=== PATIENT | female | born 1970 | race African-American/Black ===

== ENCOUNTER 2018-03-03 07:58 | Emergency (ER) | payer OTHER ==
[~2018-03-03] VITALS: Ht 170.2 cm; Wt 124.7 kg
[~2018-03-03 07:58] MED LIST: ADA30 PO; ALBUTEROL1.25 MG/3 NEB; APAP/HYDROCODON1 T13 PO; COL100 PO; IPRATROPIUM BROM3 M2 INH; LAC PO; MOR2I IV; PRI20 PO; PULMICORT0.5 MG/2 M IH; QVAR0.04 MG/Ac IH; SOL40I IV; TYL325 PO; ZES20 PO; ZOFI IV
[2018-03-03 07:59] VITALS: Ht 170.2 cm; Wt 124.7 kg
[2018-03-03 10:43] VITALS: BP 168/89
== END 2018-03-03 10:43 | disposition home or self-care (01) ==
LOC: ED 07:58
DX: J45.901 Unspecified asthma with (acute) exacerbation (principal); I10 Essential (primary) hypertension
CPT/HCPCS: J1885; J7512; J7620; Q0092

== ENCOUNTER 2018-11-16 11:05 | Emergency (ER) | payer OTHER ==
[~2018-11-16] VITALS: Ht 165.1 cm; Wt 127.0 kg
[2018-11-16 11:10] VITALS: Ht 165.1 cm; Wt 127.0 kg
[2018-11-16 11:43] VITALS: BP 165/88
[2018-11-16 12:13] LABS: BASOPHIL % 0.2 % (0-2); PLATELET COUNT 342 x10^3mcL (130-400)
[2018-11-16 12:19] LABS: RED CELL DISTRIBUTION WIDTH 16.2 % (11.5-14.5)
[2018-11-16 12:38] LABS: CALCIUM 7.3 mg/dL (8.5-10.1); CARBON DIOXIDE 26.1 mmol/L (21-32); CHLORIDE SERUM 95 mmol/L (98-107); CREATININE SERUM 0.8 mg/dL (0.6-1.0); GFR1 > 60 mL/min; GLUCOSE SERUM 371 mg/dL (74-106); POTASSIUM SERUM 3.4 mmol/L (3.5-5.1); SODIUM SERUM 137 mmol/L (136-145)
[2018-11-16 12:45] LABS: ALKALINE PHOSPHATASE 253 U/L (46-116); ALT/SGPT 63 U/L (14-59); AST/SGOT 85 U/L (15-37); BILIRUBIN TOTAL 0.5 mg/dL (0.20-1.00); TOTAL PROTEIN, SERUM 7.8 g/dL (6.4-8.2)
[2018-11-16 12:46] LABS: ALBUMIN 3.1 g/dL (3.4-5.0)
== END 2018-11-16 12:10 | disposition left against medical advice (07) ==
LOC: ED 11:05
PROVIDERS: Student in an Organized Health Care Education/Training Program
DX: F10.129 Alcohol abuse with intoxication, unspecified (principal); F41.9 Anxiety disorder, unspecified; J45.909 Unspecified asthma, uncomplicated; I10 Essential (primary) hypertension; F32.9 Major depressive disorder, single episode, unspecified
CPT/HCPCS: 36415; G0480; J1630; Q0092

== ENCOUNTER 2018-11-19 22:21 | Emergency (ER) | payer OTHER ==
[~2018-11-19] VITALS: Ht 167.6 cm; Wt 156.0 kg
[2018-11-19 22:38] VITALS: Ht 167.6 cm; Wt 156.0 kg
[2018-11-19 22:54] LABS: BASOPHIL % 0.3 % (0-2); PLATELET COUNT 306 x10^3mcL (130-400); RED CELL DISTRIBUTION WIDTH 16.7 % (11.5-14.5)
[2018-11-19 23:22] LABS: CARBON DIOXIDE 19.1 mmol/L (21-32); CHLORIDE SERUM 95 mmol/L (98-107); CREATININE SERUM 0.7 mg/dL (0.6-1.0); GFR1 > 60 mL/min; GLUCOSE SERUM 247 mg/dL (74-106); POTASSIUM SERUM 3.2 mmol/L (3.5-5.1); SODIUM SERUM 137 mmol/L (136-145)
[2018-11-19 23:26] LABS: ALBUMIN 3.2 g/dL (3.4-5.0); ALKALINE PHOSPHATASE 251 U/L (46-116); ALT/SGPT 53 U/L (14-59); AST/SGOT 79 U/L (15-37); CHOLESTEROL 193 mg/dL (<200); CHOLESTEROL/HDL RATIO 4.4; HDL CHOLESTEROL 44 mg/dL (40-60); LIPASE 421 IU/L (73-393); TOTAL PROTEIN, SERUM 8.1 g/dL (6.4-8.2); TRIGLYCERIDES 107 mg/dL (<150)
[2018-11-19 23:28] LABS: T3 TOTAL 1.37 ng/mL
[2018-11-19 23:59] LABS: FREE T4 1.41 ng/dL (0.76-1.46); FREE THYROXINE INDEX 4.5 ug/dL (1.4-4.5); T4(THYROXINE) 12.8 ug/dL (4.7-13.3)
[2018-11-20 00:37] VITALS: BP 126/78
[2018-11-20 00:52] LABS: AMPHETAMINE QUAL UR NONE DETECTED (See below)
== END 2018-11-20 01:53 | disposition home or self-care (01) ==
LOC: ED 22:21
PROVIDERS: Specialist
DX: F10.239 Alcohol dependence with withdrawal, unspecified (principal); F41.9 Anxiety disorder, unspecified; D72.829 Elevated white blood cell count, unspecified; J45.909 Unspecified asthma, uncomplicated; I10 Essential (primary) hypertension; F32.9 Major depressive disorder, single episode, unspecified; Y90.7 Blood alcohol level of 200-239 mg/100 ml
CPT/HCPCS: 83880; 84439; G0480; J2060; J7030; Q0092

== ENCOUNTER 2019-08-23 23:54 | Emergency (ER) | payer OTHER ==
[~2019-08-23] VITALS: Ht 167.6 cm; Wt 121.2 kg
[2019-08-24 00:01] VITALS: Ht 167.6 cm; Wt 121.2 kg
[2019-08-24 01:40] LABS: BASOPHIL % 2.8 % (0-2); PLATELET COUNT 388 x10^3mcL (130-400); RED CELL DISTRIBUTION WIDTH 15.5 % (11.5-14.5)
[2019-08-24 01:41] LABS: CALCIUM 8.3 mg/dL (8.5-10.1); CARBON DIOXIDE 27.7 mmol/L (21-32); CHLORIDE SERUM 101 mmol/L (98-107); CREATININE SERUM 0.9 mg/dL (0.6-1.0); GFR1 > 60 mL/min; GLUCOSE SERUM 95 mg/dL (74-106); SODIUM SERUM 138 mmol/L (136-145)
[2019-08-24 01:46] LABS: ALBUMIN 3.7 g/dL (3.4-5.0); ALKALINE PHOSPHATASE 110 U/L (46-116); ALT/SGPT 24 U/L (14-59); AST/SGOT 15 U/L (15-37); BILIRUBIN TOTAL 0.39 mg/dL (0.20-1.00); TOTAL PROTEIN, SERUM 8.2 g/dL (6.4-8.2)
[2019-08-24 02:18] LABS: AMPHETAMINE QUAL UR NONE DETECTED (See below)
[2019-08-24 03:40] VITALS: BP 144/77
== END 2019-08-24 03:40 | disposition home or self-care (01) ==
LOC: ED 23:54
PROVIDERS: Emergency Medicine
DX: F10.129 Alcohol abuse with intoxication, unspecified (principal); J45.909 Unspecified asthma, uncomplicated; I10 Essential (primary) hypertension; Z98.890 Other specified postprocedural states; Y90.8 Blood alcohol level of 240 mg/100 ml or more
CPT/HCPCS: G0480; J2405; J7030

== ENCOUNTER 2019-08-25 20:08 | Emergency (ER) | payer OTHER ==
[~2019-08-25] VITALS: Ht 170.2 cm; Wt 123.8 kg
[2019-08-25 20:13] VITALS: BP 148/71; Ht 170.2 cm; Wt 123.8 kg
== END 2019-08-25 20:43 | disposition left against medical advice (07) ==
LOC: ED 20:08
DX: R25.1 Tremor, unspecified (principal); F10.239 Alcohol dependence with withdrawal, unspecified; I10 Essential (primary) hypertension; J45.909 Unspecified asthma, uncomplicated; Z98.890 Other specified postprocedural states
CPT/HCPCS: G0480